=== PATIENT | male | born 1960 | race African-American/Black ===

== ENCOUNTER 2019-04-09 15:08 | Emergency (ER) | payer MEDICAID ==
[~2019-04-09] VITALS: Ht 182.9 cm; Wt 85.3 kg
[2019-04-09 15:15] VITALS: Ht 182.9 cm; Wt 85.3 kg
[2019-04-09 16:05] LABS: BASOPHIL % 0.9 % (0-2); PLATELET COUNT 241 x10^3mcL (130-400); RED CELL DISTRIBUTION WIDTH 12.7 % (11.5-14.5)
[2019-04-09 16:23] LABS: CALCIUM 9.7 mg/dL (8.5-10.1); CARBON DIOXIDE 24.4 mmol/L (21-32); CREATININE SERUM 1.7 mg/dL (0.7-1.3); POTASSIUM SERUM 4.3 mmol/L (3.5-5.1)
[2019-04-09 16:30] LABS: ALBUMIN 4.7 g/dL (3.4-5.0); BILIRUBIN TOTAL 1.41 mg/dL (0.20-1.00); TOTAL PROTEIN, SERUM 8.2 g/dL (6.4-8.2)
[2019-04-09 16:35] LABS: UA SPECIFIC GRAVITY 1.025 (1.005-1.035); microscopic required? YES; urine erythrocyte NEGATIVE (NEGATIVE)
[2019-04-09 19:30] VITALS: BP 114/79
== END 2019-04-09 19:30 | disposition home or self-care (01) ==
LOC: ED 15:08
PROVIDERS: Specialist
DX: M54.9 Dorsalgia, unspecified (principal); I10 Essential (primary) hypertension; F17.210 Nicotine dependence, cigarettes, uncomplicated; F20.9 Schizophrenia, unspecified
CPT/HCPCS: 99406; J1885; J2405; J3010; Q9967

== ENCOUNTER 2019-05-13 19:51 | Emergency (ER) | payer MEDICAID ==
[~2019-05-13] VITALS: Ht 188 cm; Wt 83.9 kg
[2019-05-13 19:58] VITALS: Ht 188 cm; Wt 83.9 kg
[2019-05-13 21:33] LABS: BASOPHIL % 0.3 % (0-2); CALCIUM 10.1 mg/dL (8.5-10.1); CHLORIDE SERUM 103 mmol/L (98-107); CREATININE SERUM 1.3 mg/dL (0.7-1.3); GFR1 > 60 mL/min; GLUCOSE SERUM 87 mg/dL (74-106); PLATELET COUNT 215 x10^3mcL (130-400); POTASSIUM SERUM 4.1 mmol/L (3.5-5.1); RED CELL DISTRIBUTION WIDTH 12.2 % (11.5-14.5); SODIUM SERUM 142 mmol/L (136-145)
[2019-05-13 21:38] LABS: ALBUMIN 4.7 g/dL (3.4-5.0); ALKALINE PHOSPHATASE 62 U/L (46-116); ALT/SGPT 17 U/L (16-63); AMYLASE 58 U/L (25-115); AST/SGOT 17 U/L (15-37); BILIRUBIN TOTAL 1.7 mg/dL (0.20-1.00); LIPASE 84 IU/L (73-393)
[2019-05-13 21:39] LABS: TOTAL PROTEIN, SERUM 8.5 g/dL (6.4-8.2)
[2019-05-13 22:20] VITALS: BP 136/92
== END 2019-05-13 22:20 | disposition home or self-care (01) ==
LOC: ED 19:51
PROVIDERS: Emergency Medicine
DX: K43.9 Ventral hernia without obstruction or gangrene (principal); I10 Essential (primary) hypertension; F20.0 Paranoid schizophrenia
CPT/HCPCS: J2405; J3010